=== PATIENT | male | born 1995 | race Caucasian/White ===

== ENCOUNTER 2017-01-24 11:22 | Emergency (ER) | payer OTHER ==
[2014-09-22 12:48] VITALS: BMI 31.4
[~2017-01-24 11:22] MED LIST: HYDROCODON-ACE1 EAC7 PO; IBUPROFEN800 MG PO
== END 2017-01-24 16:02 | disposition home or self-care (01) ==
LOC: D.ER 11:22
DX: S39.012A Strain of muscle, fascia and tendon of lower back, initial encounter (principal); W01.0XXA Fall on same level from slipping, tripping and stumbling without subsequent striking against object, initial encounter; Y93.89 Activity, other specified; Y92.89 Other specified places as the place of occurrence of the external cause

== ENCOUNTER 2020-04-29 22:11 | Emergency (ER) | payer OTHER ==
[~2020-04-29] VITALS: Ht 170.2 cm; Wt 90.9 kg
[2020-04-29 22:23] VITALS: Ht 170.2 cm; Wt 90.9 kg
[2020-04-30] MEDS ORDERED: OMEPRAZOLE20 M1 PO (00:47)
[2020-04-30 01:07] VITALS: BP 119/71
== END 2020-04-30 01:07 | disposition home or self-care (01) ==
LOC: D.ER 22:11
DX: K21.9 Gastro-esophageal reflux disease without esophagitis (principal); R07.9 Chest pain, unspecified; R06.02 Shortness of breath